=== PATIENT | female | born 1960 | race Caucasian/White ===

== ENCOUNTER → 2020-06-26 22:03 | Outpatient (CLI) | payer OTHER, SELFPAY ==
[2020-06-26 17:40] VITALS: BMI 19.3
[2020-06-29 14:28] LABS: HPV Reflexed? NOT INDICATED
== END ==
PROVIDERS: Visit Provider Nurse Practitioner
DX: Z01.419 Encounter for gynecological examination (general) (routine) without abnormal findings (principal)
CPT/HCPCS: 88175; G0145

== ENCOUNTER → 2021-02-12 15:33 | Outpatient (CLI) | payer OTHER, SELFPAY ==
[2021-01-23 13:16] VITALS: BMI 19.7
--- NOTE | 2021-02-12 15:38 | MRI_ITS ---
STUDY: MRI LUMBAR SPINE WITHOUT CONTRAST REASON FOR EXAM: Female, 60 years old. pain lumbar spine TECHNIQUE: Standardized fat and water weighted pulse sequences were obtained in the sagittal and axial planes. COMPARISON: Plain films 23 January 2021 FINDINGS: T12-L1: Degenerated endplates. Mildly decreased disc height, decreased hydration and degenerative morphology. Normal bilateral facet joints. Normal central canal and bilateral lateral recesses. Normal bilateral intervertebral neural foramina. Normal lumbar lordosis. There is mild dextro scoliosis. Normal conus medullaris that terminates at the L1. Cauda equina is normal. L1-2: Degenerated endplates. Mildly decreased disc height and hydration and degenerative morphology with irregularity and erosions. Normal bilateral facet joints. Normal central canal and bilateral lateral recesses. Normal bilateral intervertebral neural foramina. L2-3: Degenerated endplates. Decreased disc height and hydration and advanced degenerative morphology with broad disc bulge. Mildly degenerated bilateral facet joints. Mildly compressed thecal sac due to combination of spondylosis and epidural lipomatosis. Lateral recesses are patent. Left foramen is mildly/moderately stenotic and right foramen is patent. L3-4: Degenerated endplates. Decreased disc height and hydration and degenerative morphology with broad disc bulge. Degenerated bilateral facet joints. Canal is moderately stenotic with severe thecal sac compression due to superimposed lipomatosis. Moderate left foraminal stenosis with patent right foramen. Mild left lateral recess stenosis with patent right recess. L4-5: Mildly degenerated endplates. Normal disc height, degenerative hydration and morphology. Normal bilateral facet joints. Normal central canal and bilateral lateral recesses. Normal bilateral intervertebral neural foramina. L5-S1: Degenerated endplates. Decreased disc height, heterogeneous hydration and degenerative morphology with broad disc bulge. Degenerated bilateral facet joints. Canal is fully patent. Right foramen is moderately stenotic and left foramen is patent. Lateral recesses are patent. Normal visualized sacral ala. Normal visualized paraspinous soft tissue structures. MRI/Spine Lumbar (Routine) IMPRESSION: Severe thecal sac stenosis at L3-L4 due to spondylosis/epidural lipomatosis, mild at L2-L3. Scattered areas degree foraminal stenosis. Multilevel spondylosis and dextroscoliosis. Electronically Signed: Jered Paiz MD at 16:59 EDT Tel , Service support ,
== END ==
PROVIDERS: PCP Nurse Practitioner; Referring Provider Orthopaedic Surgery; Visit Provider Orthopaedic Surgery
DX: M51.36 Other intervertebral disc degeneration, lumbar region (principal); M54.5 Low back pain
CPT/HCPCS: 72148

== ENCOUNTER → 2021-09-06 | Outpatient (CLI) | payer OTHER, SELFPAY ==
[2021-09-06 21:49] LABS: Absolute Lymphocyte Count 2.53 X10^3/uL (0.83-4.51); Absolute Neutrophil Count 3.7 X10^3/uL (2.0-7.7); Basophil# 0.06 X10^3/uL; Basophil% 0.9 % (0-1); Eosinophil# 0.08 X10^3/uL; Eosinophils% 1.1 % (0-5); Hematocrit 45.1 % (37-47); Hemoglobin 14.7 g/dL (12.0-15.0); Lymphocyte # 2.53 X10^3/ul (0.83-4.51); Lymphocyte % 35.9 % (19-41); Mean Corp Hgb Conc 32.6 g/dL (32-36); Mean Corpuscular Hgb 32.6 pg (27.0-32.0); Monocyte% 9.9 % (0-10); NRBC Flagged by Analyzer 0 % (0-5); Neutrophil # 3.65 X10^3/uL (2.7-7.7); Neutrophil % 51.9 % (47-70); Platelet Count 348 K/mm3 (150-450); RBC Distribution Width CV 13.7 % (11.6-14.6); RBC Distribution Width SD 51.1 fl (35.1-43.9); Red Blood Count 4.51 M/mm3 (4.2-5.4)
[2021-09-06 22:02] LABS: ALB/GLOB Ratio 0.9 RATIO (0.9-2.4); AST(SGOT) 27 U/L (15-37); Alanine Aminotransfer ALT/SGPT 23 U/L (13-56); Albumin, Serum 3.6 g/dL (3.2-5.0); Alkaline Phosphatase 74 U/L (45-117); Anion Gap 5 (5-15); BUN 12 mg/dL (7-18); Calcium,Total 9.9 mg/dL (8.5-10.1); Chloride 108 mmol/L (98-107); Creatinine, Serum 0.75 mg/dL (0.55-1.02); EST Glomerular Filtration Rate 83 mL/min (>60); Est Glom Filt Rate - Afr Amer 101 mL/min (>60); Ferritin 111 ng/mL (8-252); Glucose 120 mg/dL (74-106); Iron 123 ug/dL (50-170); Potassium 4.1 mmol/L (3.5-5.1); Protein, Total 7.6 g/dL (6.4-8.2); Sodium Level 141 mmol/L (136-145)
== END | disposition home or self-care (01) ==
PROVIDERS: PCP Nurse Practitioner; Visit Provider Nurse Practitioner
DX: D64.9 Anemia, unspecified (principal); E28.39 Other primary ovarian failure
CPT/HCPCS: 80053; 82728; 83540; 85025

== ENCOUNTER 2022-02-17 21:31 | Outpatient (CLI) | payer OTHER, SELFPAY ==
[2022-02-17 22:29] LABS: AST(SGOT) 31 U/L (15-37); Alanine Aminotransfer ALT/SGPT 27 U/L (13-56); Albumin, Serum 3.8 g/dL (3.2-5.0); Alkaline Phosphatase 74 U/L (45-117); Anion Gap 4 (5-15); BUN 12 mg/dL (7-18); BUN/Creat Ratio 20.3 RATIO (10-20); Chloride 109 mmol/L (98-107); Creatinine, Serum 0.59 mg/dL (0.55-1.02); EST Glomerular Filtration Rate 110 mL/min (>60); Est Glom Filt Rate - Afr Amer 133 mL/min (>60); Globulin 3.7 g/dL (2.2-4.2); Glucose 95 mg/dL (74-106); Potassium 3.9 mmol/L (3.5-5.1); Protein, Total 7.5 g/dL (6.4-8.2); Sodium Level 139 mmol/L (136-145)
== END 2022-02-17 23:59 | disposition home or self-care (01) ==
PROVIDERS: PCP Nurse Practitioner; Visit Provider Nurse Practitioner
DX: M19.90 Unspecified osteoarthritis, unspecified site (principal)
CPT/HCPCS: 80053

== ENCOUNTER → 2022-08-14 | Outpatient (CLI) | payer OTHER, SELFPAY ==
[2022-08-14 21:34] LABS: AST(SGOT) 42 U/L (15-37); Alanine Aminotransfer ALT/SGPT 30 U/L (13-56); Albumin, Serum 3.7 g/dL (3.2-5.0); Alkaline Phosphatase 62 U/L (45-117); Anion Gap 6 (5-15); BUN 11 mg/dL (7-18); BUN/Creat Ratio 15.7 RATIO (10-20); Calcium,Total 10.8 mg/dL (8.5-10.1); Chloride 107 mmol/L (98-107); EST Glomerular Filtration Rate 91 mL/min (>60); Est Glom Filt Rate - Afr Amer 110 mL/min (>60); Globulin 3.7 g/dL (2.2-4.2); Glucose 100 mg/dL (74-106); Potassium 4.2 mmol/L (3.5-5.1); Protein, Total 7.4 g/dL (6.4-8.2); Sodium Level 142 mmol/L (136-145)
== END | disposition home or self-care (01) ==
PROVIDERS: PCP Nurse Practitioner; Visit Provider Nurse Practitioner
DX: M81.0 Age-related osteoporosis without current pathological fracture (principal)
CPT/HCPCS: 80053

== ENCOUNTER → 2023-03-03 | Outpatient (CLI) | payer OTHER, SELFPAY ==
[2023-03-03 22:52] LABS: ALB/GLOB Ratio 1.1 RATIO (0.9-2.4); AST(SGOT) 34 U/L (15-37); Alanine Aminotransfer ALT/SGPT 36 U/L (13-56); Albumin, Serum 3.8 g/dL (3.2-5.0); Alkaline Phosphatase 57 U/L (45-117); Anion Gap 3 (5-15); BUN 16 mg/dL (7-18); BUN/Creat Ratio 16.2 RATIO (10-20); Chloride 106 mmol/L (98-107); Creatinine, Serum 0.99 mg/dL (0.55-1.02); EST Glomerular Filtration Rate 60 mL/min (>60); Est Glom Filt Rate - Afr Amer 73 mL/min (>60); Globulin 3.4 g/dL (2.2-4.2); Glucose 115 mg/dL (74-106); Protein, Total 7.2 g/dL (6.4-8.2); Sodium Level 139 mmol/L (136-145)
== END | disposition home or self-care (01) ==
PROVIDERS: PCP Nurse Practitioner; Visit Provider Nurse Practitioner
DX: Z01.812 Encounter for preprocedural laboratory examination (principal)
CPT/HCPCS: 80053

== ENCOUNTER → 2023-09-07 | Outpatient (CLI) | payer OTHER, SELFPAY ==
[2023-09-07 22:17] LABS: ALB/GLOB Ratio 0.9 RATIO (0.9-2.4); AST(SGOT) 22 U/L (15-37); Alanine Aminotransfer ALT/SGPT 20 U/L (13-56); Albumin, Serum 3.6 g/dL (3.2-5.0); Alkaline Phosphatase 69 U/L (45-117); Anion Gap 4 (5-15); BUN 12 mg/dL (7-18); BUN/Creat Ratio 21.1 RATIO (10-20); Calcium,Total 10.2 mg/dL (8.5-10.1); Chloride 106 mmol/L (98-107); Creatinine, Serum 0.57 mg/dL (0.55-1.02); EST Glomerular Filtration Rate 114 mL/min (>60); Est Glom Filt Rate - Afr Amer 138 mL/min (>60); Globulin 4.1 g/dL (2.2-4.2); Glucose 97 mg/dL (74-106); Potassium 4.2 mmol/L (3.5-5.1); Protein, Total 7.7 g/dL (6.4-8.2); Sodium Level 136 mmol/L (136-145)
== END | disposition home or self-care (01) ==
PROVIDERS: PCP Nurse Practitioner; Visit Provider Nurse Practitioner
DX: M81.0 Age-related osteoporosis without current pathological fracture (principal)
CPT/HCPCS: 80053

== ENCOUNTER → 2024-05-10 | Outpatient (CLI) | payer OTHER, SELFPAY ==
[2024-05-10 20:47] LABS: Absolute Lymphocyte Count 1.67 X10^3/uL (0.83-4.51); Absolute Neutrophil Count 3.9 X10^3/uL (2.0-7.7); Basophil# 0.06 X10^3/uL; Basophil% 0.9 % (0-1); Eosinophil# 0.05 X10^3/uL; Eosinophils% 0.8 % (0-5); Hemoglobin 14.6 g/dL (12.0-15.0); Lymphocyte # 1.67 X10^3/ul (0.83-4.51); Lymphocyte % 25.6 % (19-41); Mean Corp Hgb Conc 33.2 g/dL (32-36); Mean Corpuscular Hgb 33.6 pg (27.0-32.0); Mean Corpuscular Volume 101.1 fL (81-99); Mean Platelet Vol. 11.8 fl (6.2-12.0); Monocyte# 0.81 X10^3/uL; Monocyte% 12.4 % (0-10); NRBC Flagged by Analyzer 0 % (0-5); Neutrophil # 3.92 X10^3/uL (2.7-7.7); Platelet Count 287 K/mm3 (150-450); RBC Distribution Width CV 13.2 % (11.6-14.6); RBC Distribution Width SD 49.8 fl (35.1-43.9); Red Blood Count 4.35 M/mm3 (4.2-5.4); White Blood Count 6.5 K/mm3 (4.4-11.0)
[2024-05-10 21:00] LABS: AST(SGOT) 46 U/L (15-37); Alanine Aminotransfer ALT/SGPT 44 U/L (13-56); Albumin, Serum 3.6 g/dL (3.2-5.0); Alkaline Phosphatase 83 U/L (45-117); Anion Gap 9 (5-15); BUN 12 mg/dL (7-18); BUN/Creat Ratio 22.6 RATIO (10-20); Calcium,Total 10.7 mg/dL (8.5-10.1); Chloride 100 mmol/L (98-107); Cholesterol 260 mg/dL (200); Creatinine, Serum 0.53 mg/dL (0.55-1.02); EST Glomerular Filtration Rate 123 mL/min (>60); Est Glom Filt Rate - Afr Amer 149 mL/min (>60); Globulin 3.7 g/dL (2.2-4.2); Glucose 106 mg/dL (74-106); High Density Lipoprotein 109 mg/dL; Protein, Total 7.3 g/dL (6.4-8.2); Sodium Level 136 mmol/L (136-145); Triglycerides 240 mg/dL; Very Low Density Lipoprotein 48 mg/dL (5-40)
[2024-05-10 21:12] LABS: Hemoglobin A1c 4.6 % (3.8-5.6)
== END | disposition home or self-care (01) ==
PROVIDERS: PCP Nurse Practitioner; Visit Provider Nurse Practitioner
DX: M81.0 Age-related osteoporosis without current pathological fracture (principal); E78.00 Pure hypercholesterolemia, unspecified; R53.83 Other fatigue
CPT/HCPCS: 80053; 80061; 83036; 85025

== ENCOUNTER → 2024-10-21 | Outpatient (CLI) | payer OTHER, SELFPAY ==
--- NOTE | 2024-10-21 08:43 | MRI_ITS ---
STUDY: MR Spine Lumbar W/O Contrast 10/23/2024 8:18 PM REASON FOR EXAM: Female, 64 years old. Back pain back pain and left leg radiculopathy TECHNIQUE: MR Spine Lumbar W/O Contrast Standardized fat and water weighted pulse sequences were obtained. COMPARISON: 02/12/2021 FINDINGS: T12-L1: Normal endplates. Normal disc height, hydration and morphology. Normal bilateral facet joints. Normal central canal and bilateral lateral recesses. Normal bilateral intervertebral neural foramina. Normal lumbar lordosis. There is a dextroscoliosis of the lumbar spine. Normal conus medullaris that terminates at the L1. L1-2: Loss of intervertebral disc height. There is endplate spondylosis of the vertebral body. Normal central canal and intervertebral neuroforamina. There is bilateral facet arthropathy. L2-3: Loss of intervertebral disc height. There is endplate spondylosis of the vertebral body. There is bilateral facet arthropathy. Left neural foraminal stenosis. Compression of exiting nerve roots. Ligamentum flavum thickening. Posterior disc bulge. Discogenic endplate changes. L3-4: Loss of intervertebral disc height. There is endplate spondylosis of the vertebral body. There is bilateral facet arthropathy. Left neural foraminal stenosis. Compression of exiting nerve roots. Ligamentum flavum thickening. Posterior disc bulge. Discogenic endplate changes. Epidural lipomatosis. L4-5: Loss of intervertebral disc height. There is endplate spondylosis of the vertebral body. There is bilateral facet arthropathy. Right neural foraminal stenosis. Compression of exiting nerve roots. Ligamentum flavum thickening. Posterior disc bulge. L5-S1: Loss of intervertebral disc height. There is endplate spondylosis of the vertebral body. There is bilateral facet arthropathy. Right neural foraminal stenosis. Compression of exiting nerve roots. Ligamentum flavum thickening. Posterior disc bulge and annular tear. Normal visualized sacral ala. Normal visualized paraspinous soft tissue structures. MRI/Spine Lumbar (Routine) IMPRESSION: Multilevel degenerative changes, as described above. Multilevel foraminal stenosis as noted above. This has progressed. Electronically Signed: Greg Alcantar MD at 20:24 EST ,
== END | disposition home or self-care (01) ==
LOC: MRI 08:42
PROVIDERS: PCP Nurse Practitioner; Referring Provider Orthopaedic Surgery Orthopaedic Surgery of the Spine; Visit Provider Orthopaedic Surgery Orthopaedic Surgery of the Spine
DX: M41.9 Scoliosis, unspecified (principal); M54.16 Radiculopathy, lumbar region
CPT/HCPCS: 72148

== ENCOUNTER → 2024-11-18 | Outpatient (CLI) | payer OTHER, SELFPAY ==
[2024-11-18 22:16] LABS: Absolute Lymphocyte Count 1.15 X10^3/uL (0.83-4.51); Basophil# 0.07 X10^3/uL; Basophil% 0.8 % (0-1); Eosinophil# 0.02 X10^3/uL; Eosinophils% 0.2 % (0-5); Hematocrit 43.1 % (37-47); Hemoglobin 14.5 g/dL (12.0-15.0); Lymphocyte # 1.15 X10^3/ul (0.83-4.51); Lymphocyte % 12.5 % (19-41); Mean Corp Hgb Conc 33.6 g/dL (32-36); Mean Corpuscular Hgb 34.4 pg (27.0-32.0); Mean Corpuscular Volume 102.4 fL (81-99); Mean Platelet Vol. 10.8 fl (6.2-12.0); Monocyte# 0.89 X10^3/uL; Monocyte% 9.7 % (0-10); NRBC Flagged by Analyzer 0 % (0-5); Neutrophil # 7.02 X10^3/uL (2.7-7.7); Neutrophil % 76.5 % (47-70); Platelet Count 294 K/mm3 (150-450); RBC Distribution Width CV 13.3 % (11.6-14.6); RBC Distribution Width SD 50.1 fl (35.1-43.9); Red Blood Count 4.21 M/mm3 (4.2-5.4); White Blood Count 9.2 K/mm3 (4.4-11.0)
[2024-11-18 22:24] LABS: ALB/GLOB Ratio 0.9 RATIO (0.9-2.4); AST(SGOT) 113 U/L (15-37); Alanine Aminotransfer ALT/SGPT 76 U/L (13-56); Albumin, Serum 3.5 g/dL (3.2-5.0); Alkaline Phosphatase 104 U/L (45-117); Anion Gap 9 (5-15); BUN 9 mg/dL (7-18); BUN/Creat Ratio 16.5 RATIO (10-20); Calcium,Total 9.8 mg/dL (8.5-10.1); Chloride 104 mmol/L (98-107); Creatinine, Serum 0.55 mg/dL (0.55-1.02); EST Glomerular Filtration Rate 119 mL/min (>60); Est Glom Filt Rate - Afr Amer 144 mL/min (>60); Globulin 3.9 g/dL (2.2-4.2); Glucose 106 mg/dL (74-106); Potassium 4.2 mmol/L (3.5-5.1); Protein, Total 7.4 g/dL (6.4-8.2); Sodium Level 138 mmol/L (136-145)
== END | disposition home or self-care (01) ==
PROVIDERS: PCP Nurse Practitioner; Referring Provider Nurse Practitioner; Visit Provider Nurse Practitioner
DX: N30.90 Cystitis, unspecified without hematuria (principal); M81.0 Age-related osteoporosis without current pathological fracture; R42 Dizziness and giddiness
CPT/HCPCS: 80053; 85025; 87077; 87086; 87088; 87186

== ENCOUNTER 2025-03-20 12:10 | Inpatient (IN) | payer OTHER, SELFPAY ==
--- NOTE | 2025-02-23 13:24 | EKG12_ITS ---
Test Reason : PRE OP Blood Pressure : */* mmHG Vent. Rate : 105 BPM Atrial Rate : 105 BPM P-R Int : 136 ms QRS Dur : 56 ms QT Int : 306 ms P-R-T Axes : 83 -40 60 degrees QTcB Int : 404 ms Sinus tachycardia Left axis deviation Cannot rule out Septal infarct , age undetermined Abnormal ECG Confirmed by Peterson Murry ([id number]), metropolitan editor SHIV ARORA ([id number]) on 02/24/2025 7:03:55 AM Referred By: BRANDON Confirmed By: Peterson Murry
[2025-02-23 14:30] LABS: Absolute Lymphocyte Count 1.21 X10^3/uL (0.83-4.51); Absolute Neutrophil Count 5.5 X10^3/uL (2.0-7.7); Basophil# 0.08 X10^3/uL; Basophil% 1.1 % (0-1); Eosinophil# 0.03 X10^3/uL; Eosinophils% 0.4 % (0-5); Hematocrit 42.3 % (37-47); Hemoglobin 14.5 g/dL (12.0-15.0); Lymphocyte # 1.21 X10^3/ul (0.83-4.51); Mean Corp Hgb Conc 34.3 g/dL (32-36); Mean Corpuscular Volume 99.3 fL (81-99); Mean Platelet Vol. 10.5 fl (6.2-12.0); Monocyte# 0.68 X10^3/uL; NRBC Flagged by Analyzer 0 % (0-5); Neutrophil # 5.53 X10^3/uL (2.7-7.7); Neutrophil % 73.2 % (47-70); Platelet Count 321 K/mm3 (150-450); RBC Distribution Width CV 13.8 % (11.6-14.6); RBC Distribution Width SD 50.4 fl (35.1-43.9); Red Blood Count 4.26 M/mm3 (4.2-5.4); White Blood Count 7.6 K/mm3 (4.4-11.0)
[2025-02-23 14:42] LABS: International Normalized Ratio 0.9; Partial Thromboplast Time 25.9 Seconds (24.1-36.2); Prothrombin Time (Protime)PT. 12.7 SECONDS (11.7-14.9)
[2025-02-23 16:03] LABS: Anion Gap 17 (5-15); BUN 8 mg/dL (4-19); BUN/Creat Ratio 15.2 RATIO (10-20); Carbon Dioxide 20.8 mmol/L (21.0-32.0); Chloride 102 mmol/L (98-108); Creatinine, Serum 0.55 mg/dL (0.70-1.20); EST Glomerular Filtration Rate 103 (>60); Glucose 90 mg/dL (70-99); HIV Nonreactive (Nonreactive); Hepatitis B Surface Antibody Nonreactive; Hepatitis C Antibody Nonreactive (Nonreactive); Potassium 4.2 mmol/L (3.3-5.1); Sodium Level 140 mmol/L (133-145)
[2025-02-23 17:46] LABS: AST(SGOT) 149 U/L (<=31); Alanine Aminotransfer ALT/SGPT 64 U/L (<=34); Albumin, Serum 3.8 g/dL (3.4-4.8); Alkaline Phosphatase 119 U/L (35-104); Globulin 3.8 g/dL (2.2-4.2); Magnesium 1.7 mg/dL (1.5-2.2); Protein, Total 7.6 g/dL (5.9-8.4); Total Bilirubin 0.84 mg/dL (0.00-1.30)
--- NOTE | 2025-02-24 09:14 | PAT.ANE_ITS ---
Pre-Assessment Diagnosis/Proposed Procedure Planned Operative Procedure(s): 360 LUMBAR FUSION L2-3 L3-4 Anesthesia History Anesthesia History - speech therapist: Anesthesia History - speech therapist Hx Hospitalization No 02/22/25 10:58 Any Problems With Anesthesia No 02/22/25 10:58 Cholinesterase deficiency No 02/22/25 10:58 You/Your Family Experience No 02/22/25 10:58 fever (hyperthermia) with Relationship Recent Exposure to Contagious Disease Does patient have nerve No 02/22/25 10:58 stimulator Patient instructed to have device shut off --Does patient have Pacemaker or ICD? When Was Last Pacemaker Check QUESTION #4 FULL TEXT: You/Your Family Experience fever (hyperthermia) with Anesthesia Last Oral Intake Last Oral intake: Last Oral Intake NPO since Meds taken in AM with sips of water? Meds patient instructed to take am of surgery PONV PONV - speech therapist: PONV - speech therapist Female Yes 02/22/25 10:58 HX of Motion Sickness No 02/22/25 10:58 HX of N/V After Surgery No 02/22/25 10:58 Non-Smoker Yes 02/22/25 10:58 Duration of Surgery greater Yes 02/22/25 10:58 than 60 minutes Number of Risk Factors 3 02/22/25 10:58 PONV Score Moderate Risk 02/22/25 10:58 Height & Weight Height & Weight: Anesthesia: Height & Weight Height 5 ft 4 in 11/18/24 17:42 Respiratory Assessment Respiratory Assessment - speech therapist: Respiratory Tract Infection Hx - speech therapist Hx Respiratory Tract Infection No 02/22/25 10:58 STOP Sleep Apnea STOP Sleep Apnea - speech therapist: STOP Sleep Apnea - speech therapist Hx Hypertension No 02/22/25 10:58 Hx Sleep Apnea No 02/22/25 10:58 CPAP BIPAP Do you snore loudly (louder No 02/22/25 10:58 than talking or can be heard Do you often feel tired/ Yes 02/22/25 10:58 fatigued/ sleepy during daytime? Has anyone observed you stop No 02/22/25 10:58 breathing during sleep? STOP Results Negative 02/22/25 10:58 QUESTION #5 FULL TEXT : Do you snore loudly (louder than talking or can be heard through closed doors)? Tobacco Use History Tobacco Use History - speech therapist: Tobacco Use History - speech therapist Tobacco Use Smoking Status Former smoker 02/22/25 10:58 Hx Tobacco Use Yes 02/22/25 10:58 Years Smoking Packs Smoked per Day Smoking Cessation Date was Yes - quit smoking within 15 02/22/25 10:58 within the last 15 years years Hx Smoking Cessation Date 11/09/24 02/22/25 10:58 Hx Smoking Cessation Counseling Hematologic Medial History Hematologic Hx - speech therapist: Hematologic Medical Hx - documentation specialist Hx of Blood Transfusion No 02/22/25 10:58 Hx of Transfusion in last 3 No 02/22/25 10:58 Months Date of Last Transfusion (if within last 3 months) Ever experience any problems No 02/22/25 10:58 with transfusion(s)? Specify any problems Hx of Preganancy in last 3 No 02/22/25 10:58 Months Nurse Filling Out Transfusion DSCHRIBER 02/22/25 10:58 & Questions: Date: 02/22/25 02/22/25 10:58 Time: 11:00 02/22/25 10:58 Patient unable to answer at this time (ie. confused, unrespo /Reproduction History /Reproductive History - speech therapist: /Reproductive Hx- speech therapist Hx Now No 02/22/25 10:58 Gestational Age (in weeks): EDC: Hx Hx Para Hx Section SAB No 02/22/25 10:58 PFSH Medical History (Updated 02/22/25 @ 11:16 by Giana Goodman) Depression Anxiety Alcohol use Easy bruising Restless leg Back pain [place] Former cigarette smoker History of pain when walking Arthritis DDD (degenerative disc disease), lumbar Home Medications ?Medication ?Instructions ?Recorded ?Last Taken ?Type multivitamin 1 tab PO DAILY SUPPLEMENT Unknown History calcium 500 mg (as 1 tab PO BID SUPPLEMENT 06/10 04/29 Unknown History carbonate)-vitamin D3 10 mcg (400 unit) tablet (Calcium 500 With D) denosumab 60 mg/mL subcutaneous 60 mg subcut [id number] SUPPLEMENT 08/18/24 Unknown History syringe (Prolia) Allergy/AdvReac Type Severity Reaction Status Date / Time No Known Allergies Allergy Verified 02/22/25 10:55 Surgical History (Updated 02/22/25 @ 11:16 by Giana Goodman) Hx of colonoscopy History of mandibular surgery History of facial surgery History of breast implant Social History Smoking Status: Former smoker Audit: Pertinent Findings Pertinent Findings EKG Perinent findings: 02/23/2025. Sinus tachycardia 105 bpm. Cannot rule out septal infarct, age undetermined. Additional pertinent findings: Labs ordered on 02/23/2025. Showed AST of 149. ALT of 64. And alkaline phosphatase of 119. This should not affect anesthesia Dr. Allen is aware and will need to decide on effects from surgical procedure. Recommendation Anesthesia Recommendation Anesthesia recommendation: OPTIMIZED for anesthesia
[2025-02-25 05:07] LABS: Hepatitis A AB, Total Negative (Negative)
[2025-03-08 09:34] VITALS: BP 127/95; PULSE 81; RESP 16; TEMP 36.6; O2SAT 100; BMI 18.8
[2025-03-08] MEDS: Magnesium 2 GM for ERAS IV (09:56)
[2025-03-08] MEDS: Acetaminophen 500 MG Tablet 1000 MG PO (09:56)
[2025-03-08] MEDS: Lactated Ringers 1,000 ML 15 ML IV (09:56)
--- NOTE | 2025-03-08 10:33 | PCM.HP.BLA ---
History and Physical Date of Admission: 03/08/25 MR#: [id number] Acct: [id number] Name: LIZETH CRAWFORD Rep #: [id number] : 1960 Provider: Dr. Moises Allen MD Age/Sex: 64/F Location: [facility] [place].[facility] Status: Signed Intake Vital Signs 11/18/2516:42 Height 5 ft 4 in Intake Visit Reasons: lumbar spine Chief Complaint: lumbar spine Allergies No Known Allergies Allergy (Verified 03/02/25 13:55) Medications ?Medication ?Instructions ?Recorded ?Confirmed ?Type multivitamin 1 tab PO DAILY SUPPLEMENT 01/23/21 03/02/25 History calcium 500 mg (as 1 tab PO BID SUPPLEMENT 07/04/21 03/02/25 History carbonate)-vitamin D3 10 mcg (400 unit) tablet (Calcium 500 With D) denosumab 60 mg/mL subcutaneous 60 mg subcut [id number] SUPPLEMENT 08/18/24 03/02/25 History syringe (Prolia) PFSH Medical History Depression Anxiety Alcohol use Easy bruising Restless leg Back pain [place] Former cigarette smoker History of pain when walking Arthritis DDD (degenerative disc disease), lumbar Surgical History Hx of colonoscopy History of mandibular surgery History of facial surgery History of breast implant Social History Smoking Status: Former smoker HPI lumbar spine Details: This documentation accurately reflects the service provided and the decisions made by me, Dr. Moises Allen MD 03/02/25 1351. Part of today?s visit was documented by Sosa SAVAGE, acting as scribe. LIZETH CRAWFORD is a 64 year old F here today for pre-op lumbar spine dos: 03/08/25. 01/05/25: LIZETH CRAWFORD is a 64 year old F here today for follow up on lumbar spine pain. She reports the pain is not getting any better. The pain is still radiating down into her left leg. She reports staying in bed a lot of the time due to the pain. She denies numbness and tingling into her legs. She has a difficult time sleeping due to the pain and has to lay on her back or her right side. She has not done PT yet, they did not get a call from [facility] to schedule that. 11/25/24: LIZETH CRAWFORD is a 64 year old F here today for MRI review of the lumbar spine. She denies any changes to her back pain but did run into a railing on Saturday 11/18 and is having some pain at her right lateral side of her ribs. She denies any PT or injections since her last visit. Denies trouble breathing, hurts to cough. Balance is still very questionable. No trouble gripping or with her hands. Non-diabetic. Does take Prolia for the bone density problems. No prior abdominal surgery. 08/19/24: LIZETH CRAWFORD is a 64 year old F here today for low back pain. She has been having pain since 2019. She denies any known injury. She states that her pain radiates down into her left leg. Denies numbness, tingling or other associated symptoms. She does have osteoporosis that she takes Prolia for and is helping with her osteoporosis. Her last bone density in December showed unchanged osteoporosis. She denies previous surgery. She last had injection at the beginning of 2020 which did insurance advisor her some relief but is unable to recall for how long. She does not wish to get any more injections. She denies physical therapy. She has been using a TENs unit at home with benefit. Does mention she has had balance issues recently. Ortho Exam General General: Yes no acute distress Neurologic: Yes alert and Yes oriented x3 Psychologic: Yes reasonable and appropriate Spine SPINE TESTING CERVICAL THORACIC LUMBAR Musculoskeletal Strength 0=absent - 5=normal Details: Neurological exam of the lower extremities shows 5x5 power. Normal sensations across all dermatomes. Brisk knee reflexes, ankle reflexes 2+. No clonus. No midline or paraspinal tenderness. Coding Level of Care Code Off vis,est,level 4 Diagnoses Spinal stenosis of lumbar region with neurogenic claudication M48.062 Lumbar radiculopathy M54.16 Other secondary scoliosis, lumbar region M41.56 Scoliosis type: other secondary scoliosis Time Spent (min) 35 Assessment and Plan Assessment and Plan (1) Spinal stenosis of lumbar region with neurogenic claudication: Status: Acute (2) Lumbar radiculopathy: Status: Acute (3) Lumbar scoliosis: Status: Acute Qualifiers: Scoliosis type: other secondary scoliosis Qualified Code(s): M41.56 - Other secondary scoliosis, lumbar region Plan Again reviewed xrays and recently done MRI and compared it to MRI from 2020. Imaging shows a worsening dextroscoliosis with apex at L2-L3 compared to imaging 3 years ago, and multilevel spondylosis. MRI shows L2-4 central and severe left foraminal stenosis. Multilevel disc degeneration noticed even at L4-5 and L5-S1. Discussed imaging findings in detail. Patient has had worsened degenerative scoliosis and has left anterior thigh symptoms correlating with left-sided radiculopathy especially L2-3 dermatomes. She has significant osteoporosis despite being on Prolia. Her osteoporosis continues to be severe in December 2023 after Prolia injections, with her lowest T-score being -4.0 in her left forearm. She began Prolia injections in 2021. She has not seen an mainframe consultant for her osteoporosis. Patient's pain continued to progressively worsen and she has noticed a worsening in her balance and walking distance along with her worsening scoliosis on xrays, a new MRI at this time is warranted. Discussed options such as physical therapy, pain management, and surgery. For her osteoporosis, recommend that we get an updated DEXA scan if surgery is to be considered. She is a smoker and smokes a half pack a day. Explained the imaging to patient. Patient would like a physical therapy referral to [facility]. If her quality of life is being affected by her pain then she should move forward with the surgical procedure. If she is fine dealing with the pain nonoperatively she could continue with physical therapy and pain management for injections. Surgical options were discussed. This would likely involve L2-4 decompression fusion and correction of the apex of the scoliosis. Increased risk related to osteoporosis was discussed. Risks of surgery include but are not limited to infection, bleeding, injury to nerves and vessels, need for further surgery, ileus, visceral injury, vascular injury, DVT, pulm embolism, pneumonia, atelectasis, cardiopulmonary event, pseudoarthrosis, hardware failure, adjacent segment degeneration, persistent pain, persistent numbness and weakness, nerve root injury. Patient understands and agrees to proceed with surgery consent was signed.
[2025-03-08 10:34] LABS: Bedside Glucose 117 mg/dL (74-106)
[2025-03-08 11:27] VITALS: BP 127/95; PULSE 81; RESP 16; TEMP 36.6; O2SAT 100
--- NOTE | 2025-03-08 11:27 | PRE.ANES_ITS ---
ASA Classification* ASA Classification ASA Classification: 3 Assessment & Plan Anesthesia* Anesthesia Assessment Anesthesia Assessment: Discussed sedation and/or anesthesia options, risks, benefits, and alternatives with patient/parents/legal guardian/POA. Questions invited. The patient/parents/legal guardian/POA seems to understand and agrees to proceed with anesthesia plan. Reviewed the physical assessment, medical history, allergy history and patient home medications list prior to surgery/procedure/anesthetic and documented any changes. Performed airway and anesthesia risk assessments. Anesthesia Type Anesthesia Type: General (hx of spina bifida) Anesthesia Focused Assessment* Temperature: 98 F Pulse Rate: 81 Blood Pressure: 127/95 Respiratory Rate: 16 Pulse Ox: 100 Airway Assessment Mouth opens: >3 cm Mallampati Score: II Focused Labs Anesthesia Preop lab: CBC WBC 7.6 K/mm3 (4.4-11.0) 02/23/25 13:35 02/23/25 RBC 4.26 M/mm3 (4.2-5.4) 02/23/25 13:35 02/23/25 Hgb 14.5 g/dL (12.0-15.0) 02/23/25 13:35 02/23/25 Hct 42.3 % (37-47) 02/23/25 13:35 02/23/25 Plt Count 321 K/mm3 (150-450) 02/23/25 13:35 02/23/25 CHEMISTRY Potassium 4.4 mmol/L (3.3-5.1) 03/02/25 21:50 03/02/25 Sodium 140 mmol/L (133-145) 03/02/25 21:50 03/02/25 Magnesium 1.7 mg/dL (1.5-2.2) 02/23/25 13:35 02/23/25 BUN 10 mg/dL (4-19) 03/02/25 21:50 03/02/25 Creatinine 0.55 mg/dL (0.70-1.20) L 03/02/25 21:50 Glucose 110 mg/dL (70-99) H 03/02/25 21:50 03/02/25 POC Glucose 117 mg/dL (74-106) H 03/08/25 09:42 03/08/25 COAG PT 12.7 SECONDS (11.7-14.9) 02/23/25 13:35 Pre-Assessment Diagnosis/Proposed Procedure Planned Operative Procedure(s): 360 LUMBAR FUSION L2-3 L3-4 Anesthesia History Anesthesia History - community relations assistant: Anesthesia History - community relations assistant Hx Hospitalization No 02/22/25 10:58 Any Problems With Anesthesia No 02/22/25 10:58 Cholinesterase deficiency No 02/22/25 10:58 You/Your Family Experience No 02/22/25 10:58 fever (hyperthermia) with Relationship Recent Exposure to Contagious No 03/08/25 09:34 Disease Does patient have nerve No 02/22/25 10:58 stimulator Patient instructed to have device shut off --Does patient have Pacemaker No 03/08/25 09:34 or ICD? When Was Last Pacemaker Check QUESTION #4 FULL TEXT: You/Your Family Experience fever (hyperthermia) with Anesthesia Last Oral Intake Last Oral intake: Last Oral Intake NPO since 07:00 03/08/25 09:34 Meds taken in AM with sips of No 03/08/25 09:34 water? Meds patient instructed to take am of surgery PONV PONV - community relations assistant: PONV - community relations assistant Female Yes 02/22/25 10:58 HX of Motion Sickness No 02/22/25 10:58 HX of N/V After Surgery No 02/22/25 10:58 Non-Smoker Yes 02/22/25 10:58 Duration of Surgery greater Yes 02/22/25 10:58 than 60 minutes Number of Risk Factors 3 02/22/25 10:58 PONV Score Moderate Risk 02/22/25 10:58 Height & Weight Height & Weight: Anesthesia: Height & Weight Height 5 ft 2 in 03/08/25 09:34 Weight: 46.7 kg 03/08/25 09:34 Body Mass Index (BMI) 18.8 03/08/25 09:34 Respiratory Assessment Respiratory Assessment - community relations assistant: Respiratory Tract Infection Hx - community relations assistant Hx Respiratory Tract Infection No 02/22/25 10:58 STOP Sleep Apnea STOP Sleep Apnea - community relations assistant: STOP Sleep Apnea - community relations assistant Hx Hypertension No 02/22/25 10:58 Hx Sleep Apnea No 02/22/25 10:58 CPAP BIPAP Do you snore loudly (louder No 02/22/25 10:58 than talking or can be heard Do you often feel tired/ Yes 02/22/25 10:58 fatigued/ sleepy during daytime? Has anyone observed you stop No 02/22/25 10:58 breathing during sleep? STOP Results Negative 02/22/25 10:58 QUESTION #5 FULL TEXT : Do you snore loudly (louder than talking or can be heard through closed doors)? Tobacco Use History Tobacco Use History - community relations assistant: Tobacco Use History - community relations assistant Tobacco Use Smoking Status Former smoker 02/22/25 10:58 Hx Tobacco Use Yes 02/22/25 10:58 Years Smoking Packs Smoked per Day Smoking Cessation Date was Yes - quit smoking within 15 02/22/25 10:58 within the last 15 years years Hx Smoking Cessation Date 11/09/24 02/22/25 10:58 Hx Smoking Cessation Counseling Hematologic Medial History Hematologic Hx - community relations assistant: Hematologic Medical Hx - water purification chemist Hx of Blood Transfusion No 02/22/25 10:58 Hx of Transfusion in last 3 No 02/22/25 10:58 Months Date of Last Transfusion (if within last 3 months) Ever experience any problems No 02/22/25 10:58 with transfusion(s)? Specify any problems Hx of Preganancy in last 3 No 02/22/25 10:58 Months Nurse Filling Out Transfusion DSCHRIBER 02/22/25 10:58 & Questions: Date: 02/22/25 02/22/25 10:58 Time: 11:00 02/22/25 10:58 Patient unable to answer at this time (ie. confused, unrespo /Reproduction History /Reproductive History - community relations assistant: /Reproductive Hx- community relations assistant Hx Now No 02/22/25 10:58 Gestational Age (in weeks): EDC: Hx Hx Para Hx Section SAB No 02/22/25 10:58 Active Medications Active Medications: Current Medications Generic Name Dose Route Start Last Admin Trade Name Freq PRN Reason Stop Dose Admin Acetaminophen 1,000 mg 03/08/25 11:30 03/08/25 09:56 Acetaminophen 500 Mg Tablet PO 03/08/25 11:31 1,000 mg X1 ONE Administration Cefazolin Sodium 2 gm/ Sodium 110 mls @ 150 mls/hr 03/08/25 11:30 Chloride IV 03/08/25 12:13 PREOP ONE Tranexamic Acid 1,000 mg/ 110 mls @ 440 mls/hr 03/08/25 11:30 Sodium Chloride IV 03/08/25 11:44 X1 ONE Tranexamic Acid 1,000 mg/ 110 mls @ 440 mls/hr 03/08/25 11:30 Sodium Chloride IV 03/08/25 11:44 X1 ONE Magnesium Sulfate 2 gm/ 104 mls @ 208 mls/hr 03/08/25 11:30 03/08/25 09:56 Dextrose IV 03/08/25 11:59 208 mls/hr X1 ONE Administration Lactated Ringer's 1,000 mls @ 15 mls/hr 03/08/25 10:00 03/08/25 09:56 IV 15 mls/hr .Q48H VALENTINE Administration Insulin Human Lispro 1 - 6 unit 03/08/25 11:30 Insulin Lispro 100 Unit/Ml Insuln.Pen SC Q4H PRN PRN BG>/= 180, SEE PROTOCOL Protocol PFSH Medical History Depression Anxiety Alcohol use Easy bruising Restless leg Back pain [place] Former cigarette smoker History of pain when walking Arthritis DDD (degenerative disc disease), lumbar Home Medications ?Medication ?Instructions ?Recorded ?Last Taken ?Type multivitamin 1 tab PO DAILY SUPPLEMENT Unknown History calcium 500 mg (as 1 tab PO BID SUPPLEMENT 06/10 04/29 Unknown History carbonate)-vitamin D3 10 mcg (400 unit) tablet (Calcium 500 With D) denosumab 60 mg/mL subcutaneous 60 mg subcut [id number] SUPPLEMENT 08/18/24 Unknown History syringe (Prolia) meclizine 12.5 mg tablet 12.5 mg PO TID PRN dizziness #30 03/03/25 Unknown Rx tabs Allergy/AdvReac Type Severity Reaction Status Date / Time No Known Allergies Allergy Verified 03/08/25 09:27 Surgical History Hx of colonoscopy History of mandibular surgery History of facial surgery History of breast implant Social History Smoking Status: Former smoker Review of Systems (Anesthesia) ROS Narrative System reviewed and no additional complaints, except as documented.
--- NOTE | 2025-03-08 12:32 | SUR.PREOP ---
surgery cancelled, IV removed and pt going home.
[2025-03-20] VITALS (16 sets, daily range): BP systolic 104–143; BP diastolic 75–95; PULSE 54–82; RESP 12–18; TEMP 35.9–37.4; O2SAT 93–100; BMI 18.8; BMI 18.9
[2025-03-20] MEDS: Lactated Ringers 1,000 ML 15 ML IV (06:30)
[2025-03-20] MEDS: Magnesium 2 GM for ERAS IV (06:35)
[2025-03-20] MEDS: Acetaminophen 500 MG Tablet 1000 MG PO ×3 (06:48→23:25)
--- NOTE | 2025-03-20 07:11 | PCM.PRE.AN2 ---
ASA Classification* ASA Classification ASA Classification: 2 Assessment & Plan Anesthesia* Anesthesia Assessment Anesthesia Assessment: Discussed sedation and/or anesthesia options, risks, benefits, and alternatives with patient/parents/legal guardian/POA. Questions invited. The patient/parents/legal guardian/POA seems to understand and agrees to proceed with anesthesia plan. Reviewed the physical assessment, medical history, allergy history and patient home medications list prior to surgery/procedure/anesthetic and documented any changes. Performed airway and anesthesia risk assessments. Anesthesia Type Anesthesia Type: General (Consider GlideScope) History Source History Obtained from:: Patient and Chart Anesthesia Focused Assessment* Temperature: 99.3 F Pulse Rate: 77 Blood Pressure: 143/92 Respiratory Rate: 16 Pulse Ox: 95 Oxygen Delivery Method: Room Air Airway Assessment Mouth opens: >3 cm Mallampati Score: IV Teeth Condition: Missing (Patient has 1 missing molar. Rest are tight.) Neck Range of motion (ROM): Full ROM Focused Labs Anesthesia Preop lab: CBC WBC 7.6 K/mm3 (4.4-11.0) 02/23/25 13:35 02/23/25 RBC 4.26 M/mm3 (4.2-5.4) 02/23/25 13:35 02/23/25 Hgb 14.5 g/dL (12.0-15.0) 02/23/25 13:35 02/23/25 Hct 42.3 % (37-47) 02/23/25 13:35 02/23/25 Plt Count 321 K/mm3 (150-450) 02/23/25 13:35 02/23/25 CHEMISTRY Potassium 4.4 mmol/L (3.3-5.1) 03/02/25 21:50 03/02/25 Sodium 140 mmol/L (133-145) 03/02/25 21:50 03/02/25 Magnesium 1.7 mg/dL (1.5-2.2) 02/23/25 13:35 02/23/25 BUN 10 mg/dL (4-19) 03/02/25 21:50 03/02/25 Creatinine 0.55 mg/dL (0.70-1.20) L 03/02/25 21:50 03/02/25 Glucose 110 mg/dL (70-99) H 03/02/25 21:50 03/02/25 POC Glucose 117 mg/dL (74-106) H 03/08/25 09:42 03/08/25 COAG PT 12.7 SECONDS (11.7-14.9) 02/23/25 13:35 02/23/25 Pre-Assessment Diagnosis/Proposed Procedure Planned Operative Procedure(s): 360 LUMBAR FUSION L2-3 L3-4 Anesthesia History 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 When Was Last Pacemaker Check QUESTION #4 FULL TEXT: You/Your Family Experience fever (hyperthermia) with Anesthesia Last Oral Intake Last Oral intake: Last Oral Intake NPO since 21:00 03/20/25 06:30 Meds taken in AM with sips of No 03/20/25 06:30 water? Meds patient instructed to take am of surgery PONV PONV - adjunct spanish instructor: PONV - adjunct spanish instructor Female Yes 02/22/25 10:58 HX of Motion Sickness No 02/22/25 10:58 HX of N/V After Surgery No 02/22/25 10:58 Non-Smoker Yes 02/22/25 10:58 Duration of Surgery greater Yes 02/22/25 10:58 than 60 minutes Number of Risk Factors 3 02/22/25 10:58 PONV Score Moderate Risk 02/22/25 10:58 Height & Weight Height & Weight: Anesthesia: Height & Weight Height 5 ft 2 in 03/20/25 06:30 Weight: 46.7 kg 03/20/25 06:30 Body Mass Index (BMI) 18.8 03/20/25 06:30 Respiratory Assessment Respiratory Assessment - adjunct spanish instructor: Respiratory Tract Infection Hx - adjunct spanish instructor Hx Respiratory Tract Infection No 02/22/25 10:58 STOP Sleep Apnea STOP Sleep Apnea - adjunct spanish instructor: STOP Sleep Apnea - adjunct spanish instructor Hx Hypertension No 02/22/25 10:58 Hx Sleep Apnea No 02/22/25 10:58 CPAP BIPAP Do you snore loudly (louder No 02/22/25 10:58 than talking or can be heard Do you often feel tired/ Yes 02/22/25 10:58 fatigued/ sleepy during daytime? Has anyone observed you stop No 02/22/25 10:58 breathing during sleep? STOP Results Negative 02/22/25 10:58 QUESTION #5 FULL TEXT : Do you snore loudly (louder than talking or can be heard through closed doors)? Tobacco Use History Tobacco Use History - adjunct spanish instructor: Tobacco Use History - adjunct spanish instructor Tobacco Use Smoking Status Former smoker 02/22/25 10:58 Hx Tobacco Use Yes 02/22/25 10:58 Years Smoking Packs Smoked per Day Smoking Cessation Date was Yes - quit smoking within 15 02/22/25 10:58 within the last 15 years years Hx Smoking Cessation Date 11/09/24 02/22/25 10:58 Hx Smoking Cessation Counseling Hematologic Medial History Hematologic Hx - adjunct spanish instructor: Hematologic Medical Hx - chair maker Hx of Blood Transfusion No 02/22/25 10:58 Hx of Transfusion in last 3 No 02/22/25 10:58 Months Date of Last Transfusion (if within last 3 months) Ever experience any problems No 02/22/25 10:58 with transfusion(s)? Specify any problems Hx of Preganancy in last 3 No 02/22/25 10:58 Months Nurse Filling Out Transfusion DSCHRIBER 02/22/25 10:58 & Questions: Date: 02/22/25 02/22/25 10:58 Time: 11:00 02/22/25 10:58 Patient unable to answer at this time (ie. confused, unrespo /Reproduction History /Reproductive History - adjunct spanish instructor: /Reproductive Hx- adjunct spanish instructor Hx Now No 02/22/25 10:58 Gestational Age (in weeks): EDC: Hx Hx Para Hx Section SAB No 02/22/25 10:58 Active Medications Active Medications: Current Medications Generic Name Dose Route Start Last Admin Trade Name Freq PRN Reason Stop Dose Admin Acetaminophen 1,000 mg 03/20/25 07:30 03/20/25 06:48 Acetaminophen 500 Mg Tablet PO 03/20/25 07:31 1,000 mg PREOP ONE Administration Cefazolin Sodium 2 gm/ Sodium 110 mls @ 150 mls/hr 03/20/25 07:30 Chloride IV 03/20/25 08:13 INTRAOP ONE Tranexamic Acid 1,000 mg/ 110 mls @ 440 mls/hr 03/20/25 07:30 Sodium Chloride IV 03/20/25 07:44 X1 ONE Tranexamic Acid 1,000 mg/ 110 mls @ 440 mls/hr 03/20/25 07:30 Sodium Chloride IV 03/20/25 07:44 X1 ONE Lactated Ringer's 1,000 mls @ 15 mls/hr 03/20/25 06:45 03/20/25 06:30 IV 15 mls/hr .Q48H VALENTINE Administration Insulin Human Lispro 1 - 6 unit 03/20/25 07:30 Insulin Lispro 100 Unit/Ml Insuln.Pen SC Q4H PRN PRN BG>/= 180, SEE PROTOCOL Protocol PFSH Medical History Depression Anxiety Alcohol use Easy bruising Restless leg Back pain [place] Former cigarette smoker History of pain when walking Arthritis DDD (degenerative disc disease), lumbar Home Medications ?Medication ?Instructions ?Recorded ?Last Taken ?Type multivitamin 1 tab PO DAILY SUPPLEMENT 01/23/21 03/15/25 History calcium 500 mg (as 1 tab PO BID SUPPLEMENT 07/04/21 03/15/25 History carbonate)-vitamin D3 10 mcg (400 unit) tablet (Calcium 500 With D) denosumab 60 mg/mL subcutaneous 60 mg subcut [id number] SUPPLEMENT 08/18/24 12/29/24 History syringe (Prolia) meclizine 12.5 mg tablet 12.5 mg PO TID PRN dizziness #30 03/03/25 Unknown Rx tabs Allergy/AdvReac Type Severity Reaction Status Date / Time No Known Allergies Allergy Verified 03/20/25 06:39 Surgical History Hx of colonoscopy History of mandibular surgery History of facial surgery History of breast implant Social History Smoking Status: Former smoker Review of Systems (Anesthesia) ROS Narrative System reviewed and no additional complaints, except as documented.
--- NOTE | 2025-03-20 07:35 | RAD_ITS ---
PROCEDURE: LUMBAR SPINE 2 OR 3 VIEWS 03/20/2025 REASON FOR EXAM: 360 LUMBAR FUSION L2-3 AND L3-4 TECHNIQUE: Fluoroscopy with 17 spot images FINDINGS: Fluoroscopy time 92.5 seconds Cumulative dose 23.56 mGy Spot images with intervertebral disc spacers L2 through L4, lateral anchor screws and bilateral posterior fusion. Please see operative report for further detail. RAD/Lumbar Spine 2 or 3 Views IMPRESSION: Fluoroscopy as above. Reading Location: [id number]
[2025-03-20] MEDS: Cefazolin 2 GM in 0.9% Normal Saline (100mL Bag) 100 ML IV ×2 (07:50→20:05)
[2025-03-20] MEDS: TRANEXAMIC ACID 1,000 MG in 0.9% Normal Saline (100mL Bag) 100 ML 440 MG IV ×2 (08:05→11:32)
[2025-03-20] MEDS: Ropivacaine 0.5% 30 ML Vial (11:53)
--- NOTE | 2025-03-20 12:10 | PCM.OPRPT ---
Procedures Musculoskeletal 20xxx-29xxx: Other Procedure See Report Operative Report (Standard) Operative Information Date of Procedure: 03/20/25 Pre-Operative Diagnosis: Lumbar scoliosis with lateral listhesis L2-4, stenosis with neurogenic claudication Post-Operative Diagnosis: Same Surgery/Procedure Performed: L2-4 oblique lumbar body fusion repairer switchgear: Yes Die Repair Machinist: Janine Scanlon Tasks completed by heel sprayer first: Closing, Removing tissue, Hemostasis: Electrocautery and Retracting Type of Anesthesia: General RN Documented Start/Stop Times: Operation Date: 03/20/25 07:30 Case Time Into Pre-Op 03/20/25 06:02 Out of Pre-Op 03/20/25 07:30 Anesthesia Start 03/20/25 07:35 Into Room 03/20/25 07:35 Procedure Start 03/20/25 08:19 Procedure End 03/20/25 12:04 Procedure Start Time: 08:19 Procedure Stop Time: 12:04 Select all DRAINS/GRAFTS/IMPLANTS that apply: Graft Graft details: Allograft cancellous bone chips, autologous bone marrow aspirate and Implanted device Implanted device details: DePuy cougar lateral lumbar interbody cage?peek Estimated Blood Loss: 50 cc Specimen collected: No Description of surgery: Preoperative diagnosis: L2-4 lateral listhesis with scoliosis, stenosis with neurogenic claudication Postoperative diagnosis: Same Name of procedures L2-4 oblique lumbar interbody fusion (OLIF), minimally invasive left sided approach, lateral decubitus: ? L2-3 anterolateral spinal fusion 87847 ? L3-4 anterolateral fusion 26489/51 ? L2-3 insertion of cage 74800 ? L3-4 insertion of cage 51318/51 ? Bone graft aspirate left iliac crest separate incision ? Allograft cancellous chips Attending Surgeon: Dr. Moises Allen Estimated blood loss: 50 mL Anesthesia: General Complications: None Indications: Patient is a 64-year-old pleasant lady who has had a long history of low back pain and bilateral lower extremity radiation, difficulty walking distances. Xrays & MRI revealed severe focal scoliosis with L3 at apex with lateral listhesis at both L2-3 and L3-4, degenerative stenosis central and foraminal. After undergoing a prolonged period of nonoperative treatment, the patient elected to undergo surgical decompression & fusion. All surgical options were discussed with the patient including anterior and posterior approaches. All risks and benefits associated with the procedure were explained to the patient. The risks include but are not limited to infection, bleeding, injury to nerves and vessels including major vessels like IVC and aorta, persistent paresthesia, persistent pain, dural tear, need for further procedures, adjacent segment degeneration, pseudoarthrosis, hardware failure, retrograde ejaculation, paralytic ileus, etc. Procedure: The patient was identified in the preoperative holding suite using Unique patient identifiers. Skin was marked, consent was reviewed, and all questions were answered. The patient was then brought back to the operative room. A surgical timeout was performed to make sure correct procedure was being done on the correct patient and all operative room staff were on the same page. General endotracheal anesthesia was then given to the patient. Russell catheter was inserted. The patient was then carefully positioned in right lateral decubitus position with the left side up on a regular OR table. Axillary roll was placed and all bony prominences were well- padded. Hip positioners were placed in the posterior buttocks and anterior sternal area. The surgical area was prepped and draped in usual fashion. Preoperative antibiotic was injected IV as preoperative antibiotic. A final timeout was then again done just before starting the procedure. A 2 inch incision oblique was taken in the left lower quadrant of the abdomen 2 fingerbreadths away from the iliac crest and the lower ribs. Sharp dissection with Bovie was carried out up to the fascia covering the external oblique. The external oblique, internal oblique and transversus abdominis muscles were split along the muscle fibers and retroperitoneal space was entered. Sponge sticks were utilized to move the bowel and peritoneum gfk-ac-soo-way and psoas muscle was exposed staying within the retroperitoneal plane. Verimedframe retractor system was positioned and the retractor blade was applied onto the psoas. The interval between psoas and midline structures was developed and appropriate retractors were placed. Once adequate interval was cleared, a disc space was identified and a marker x-ray was taken. This identified the L3-4 disc level. The prepsoas interval was then traced inferiorly. Annulotomy was done with a long handled knife. Pituitary was used to remove disc material. Curettes were used to prepare the endplates. Disc space spreaders were utilized to distract and increase the disc height. Near complete discectomy was performed. Trials of serially increasing sizes were used. A Jamshidi needle was used to aspirate bone marrow from the left anterior iliac crest through a separate incision and this aspirate was mixed with the allograft bone chips. A Depuy [place] cage of size of the 18 x 45 x 10 mm with 15 degrees lordosis was packed with corticocancellous allograft bone chips mixed with bone marrow aspirate. This was inserted into the L3-4 disc space. The retractors were then repositioned to expose the L2-3 disc and the procedure was repeated with complete discectomy and endplate preparation. Smaller disc distractors were also used to bluntly perform a contralateral annulotomy at both levels. Cage size was 18 x 45 x 10 mm at L2-3. AP and lateral C-arm pictures were taken to confirm good position of the cage. Some bone chips were also packed around the cages. Screw with washer was placed into the lower L2 and L3 body with a washer partially covering the cage at L2-3 and L3-4 respectively. Hemostasis was confirmed. The retractor blades were removed. Closure was done in layers with a continuous strand of # 1 Vicryl in all muscle layers. 2-0 Vicryl was used for subcutaneous tissue and 4-0 for Monocryl for the skin. Steri-Strips were applied and 4 x 4 gauze and Tegaderm were applied. French Cord Binder Janine Scanlon PA-C. My physician visitor use assistant was a vital part of this case. They were important in appropriate retraction during the case, and protection of soft tissues during the procedure. Their intimate knowledge of the case and my steps aided in safe and expedient completion of the procedure as well as appropriate position of the patient during the surgery. They were also vital in assisting with closure under my direct supervision. Surgical Findings: See operative note Complications Complications: No
--- NOTE | 2025-03-20 12:13 | OP.PCM_ITS ---
Procedures Musculoskeletal 20xxx-29xxx: Other Procedure See Report Operative Report (Standard) Operative Information Date of Procedure: 03/20/25 Pre-Operative Diagnosis: L2-3, L3-4 lateral listhesis with scoliosis, stenosis with neurogenic claudication Post-Operative Diagnosis: Same Surgery/Procedure Performed: L2-4 posterior spinal instrumented fusion practice coordinator: Yes Steam Box Hand: Janine Scanlon Tasks completed by graphic design assistant: Closing, Removing tissue, Implanting device and Retracting Type of Anesthesia: General RN Documented Start/Stop Times: Operation Date: 03/20/25 07:30 Case Time Into Pre-Op 03/20/25 06:02 Out of Pre-Op 03/20/25 07:30 Anesthesia Start 03/20/25 07:35 Into Room 03/20/25 07:35 Procedure Start 03/20/25 08:19 Procedure End 03/20/25 12:04 Procedure Start Time: 08:19 Procedure Stop Time: 12:04 Select all DRAINS/GRAFTS/IMPLANTS that apply: Graft Graft details: Allograft cancellous bone chips and Implanted device Implanted device details: DePHomuorker prime pedicle screw instrumentation Estimated Blood Loss: 50 cc Specimen collected: No Description of surgery: Preoperative diagnosis: L2-3, L3-4 lateral listhesis with scoliosis, stenosis with neurogenic claudication Postoperative diagnosis: Same Name of procedures: L2-4 posterior percutaneous pedicle screw instrumented fusion, prone: ? L2-3 posterior spinal fusion 59890 ? L2-4 posterior pedicle screw instrumentation 92825 ? L3-4 posterior fusion 58166/51 ? Allograft cancellous chips [id number] Attending Surgeon: Dr. Moises Allen Estimated blood loss: 50 mL (total for entire case) Anesthesia: General Complications: None Description of procedure: After the anterior procedure was complete, the patient was then turned supine. The patient was then transferred to Azael table in prone position. Back was prepped and draped in usual fashion. C-arm AP view was then taken. C-arm was positioned in a way that L2 was centralized and superior endplate of was parallel to the beam. Spinous process was centered between the pedicles. Midline was marked with skin marker and lateral borders of the pedicles were also marked. Skin marker was also utilized to traci transversely across the middle of the pedicles at L2. 2 transverse paramedian incisions of 1 inch were placed. The fascia was incised vertically. Finger dissection was utilized to palpate the transverse process and facet joint. Viper Prime screws with towers were inserted and docked onto the transverse processes. This was then slowly moved medially to reach the superior articular process of L2. This was then confirmed on C-arm and then a mallet was utilized to drive the trocar into the pedicle going up to the medial wall of the pedicle on AP view. This was performed both sides. C-arm lateral view confirmed that the tip of the trocar was in the vertebral body, and the screw was advanced into the pedicle and vertebral body. This was repeated similarly at L3 and L4 bilaterally. Screw sizes were 7 x 45 mm at L2, L3 and L4 on both sides. 80 mm precontoured titanium 5.5 mm lordotic farzana on the right and 70 mm on the left were then passed through the screw extensions and reduced down to the screws with the help of [employer] Viper instrumentation system on both sides. AP and lateral view of the C-arm showed good positioning of the screws and cages. Final tightening with the torque screwdriver was then completed. Gabriella was utilized to roughen the facet joint at L2-3 and L3-4 on the right side. Cancellous allograft bone chips mixed with bone marrow aspirate were then placed over this decorticated area. Hemostasis was achieved. Closure was done in layers with 0 Vicryls for the fascia, 2-0 Vicryls for the subcutaneous tissue, and Monocryl for the skin. Dermabond was applied. Dressings were applied covered with Tegaderm. The patient was then turned supine onto a hospital bed. The patient was extubated and taken to PACU in stable condition. The patient tolerated the procedure well and no complications occurred. Depuy [place] cage & Viper Prime minimally invasive pedicle screw instrumentation system was utilized in this case. No dural tear was identified intraoperatively. I was present for the entirety of the case and performed the surgery. Liner Man Janine Scanlon PA-C. My physician assistant department manager was a vital part of this case. They were important in appropriate retraction during the case, and protection of soft tissues during the procedure. Their intimate knowledge of the case and my steps aided in safe and expedient completion of the procedure as well as appropriate position of the patient during the surgery. They were also vital in assisting with closure under my direct supervision. Surgical Findings: See operative note Complications Complications: No
--- NOTE | 2025-03-20 12:21 | PCM.POST.ANE ---
Anesthesia: Postop Eval I Current Vital Signs Temperature: 97.4 F Pulse Rate: 62 Blood Pressure: 131/95 Respiratory Rate: 12 Pulse Ox: 99 Oxygen Delivery Method: Room Air Assessment Airway patent: Yes Spontaneous unlabored respirations: Yes Mental status: Awake nausea: No Vomiting: No Anesthesia Complication: No Fluid Hydration Crystalloid volume administer (ml): 1,500 Total IV fluid infused: 1,500 Progress Note Anesthesia document: Postop Eval 1 completed: Yes
[2025-03-20] MEDS: Ketorolac 15 MG/ML Vial IV (13:10)
--- NOTE | 2025-03-20 13:20 | PN.HOSP_ITS ---
Reason for Visit Reason for Visit: Diagnoses Encounter for other preprocedural examination (03/20/25) Subjective Subjective The patient is a 64 y/o F w/ PMHx: Anxiety and Depression, RLS, Former tobacco use, OA/DDD who presents to the [facility] on 03/20/25 with history of persistent lumbar back pain with neurogenic claudication with L2-3 and L3-L4 lateral listhesis with scoliosis as well as stenosis for planned L2-4 posterior spinal instrumented fusion per Dr. Allen given failed outpatient conservative measures and interventions. Patient seen in PACU, awakens to stimuli in discussion, notes pain in the lower back and currently rating it 9-10 out of 10 in severity however she does appear more comfortable than this. Per discussion with PACU nursing they report that she has consistently been waiting at low. Patient denies any paresthesias. Patient denies fevers, chills, nausea, emesis, abdominal pain, chest pain or dyspnea. Objective Data Objective Data Vital Signs: Vital Signs Temp Pulse Resp BP Pulse Ox O2 Del Method O2 Flow Rate 97.4 F L 58 L 12 112/81 H 100 Nasal Cannula 4 03/20/25 12:21 03/20/25 13:00 03/20/25 13:00 03/20/25 13:00 03/20/25 13:00 03/20/25 13:00 03/20/25 13:00 Oxygen Flow Rate (L/min) 4 Oxygen Delivery Method Nasal Cannula Weight: 102 lb 15.294 oz Body Mass Index (BMI) 18.8 Intake & Output: Intake and Output for Last 24 Hours 03/18/25 03/19/25 03/20/25 23:59 23:59 23:59 Intake Total 4220 / 4220 Output Total 400 / 400 Balance 3820 / 3820 Lab / Micro Data 02/23/25 13:35 02/23/25 13:35 Labs: Laboratory Results - last 24 hr 03/20/25 06:30: Blood Type A POSITIVE, Antibody Screen NEGATIVE Micro: Microbiology 02/25/25 10:53 Swab (Method) Nasal Screen MRSA/MSSA - Final Physical Exam Narrative Physical Examination: General: Awake, alert, oriented x 3 and cooperative, laying in the PACU bed, does not appear any distress but noting her lumbar back pain 10 out of 10, dull aching. Skin: Normal color, normal turgor, no icterus, no cyanosis except for recent OR with dressings in place with no drainage. HEENT: AT/NC, EOMI, PERRLA, mildly dry MM, no carotid bruits or JVD noted. Lungs: Mildly diminished, greater bases, appropriate effort, no rales, ronchi or wheezing. Heart: Regular rate and rhythm; no gallop, rub audible. Abdomen: Soft, NTTP, ND, mildly hyperactive BS, no HSM. Extremities: No cyanosis, clubbing, or edema. Neurological: Patient awake, alert, oriented as noted, cognitive function improving, currently suspect near baseline intact; pupils equally reactive to light and accommodation, cranial nerves grossly normal, moving all 4 extremities, no focal deficits, strength moderately to severely globally decreased given recent LR, improving as anesthetics also wear off. Psychiatric: Affect appears fatigued otherwise normal, no acute evidence of depressive or anxiety feelings but does have underlying history. Assessment & Plan Assessment/Plan (1) Spinal stenosis of lumbar region with neurogenic claudication: PLAN: Plan The patient is a 64 y/o F w/ PMHx: Anxiety and Depression, RLS, Former tobacco use, OA/DDD who presents to the [facility] on 03/20/25 with history of persistent lumbar back pain with neurogenic claudication with L2-3 and L3-L4 lateral listhesis with scoliosis as well as stenosis for planned L2-4 posterior spinal instrumented fusion per Dr. Allen given failed outpatient conservative measures and interventions. #1. Persistent lumbar back pain with neurogenic claudication: Failed conservative therapies and treatments, admitted per Dr. Allen, s/p L2-4 posterior spinal instrumented fusion, post-operative pain management, bowel regimen, DVT Prophylaxis, PT/OT/CM per Orthopedic surgery discretion. #2. Pain anxiety and Depression: Per current list not on regimen, encourage continued outpatient follow-up and evaluation. #3. Former tobacco use: Encourage continued tobacco use. #4. RLS: Not on regimen per current list, if needed may add requip. #5. DVT prophylaxis: SCDs, chemoprophylaxis per discretion of Orthopedic surgery given recent OR. Charges/Coding Visit Charges Inpatient E&M: 69774 Subs Hosp L3
[2025-03-20] MEDS: Methocarbamol 500 MG Tablet 1000 MG PO ×3 (15:23→23:26)
--- NOTE | 2025-03-20 18:16 | POSTOPAN2_ITS ---
Anesthesia Postop Eval I Sum Postop Eval Completion status Anesthesia document: Postop Eval 1 completed: Yes Anesthesia Postop Eval I Summary Anesthesia Postop Eval I Summary: Anesthesia Postop Eval I: Assessment Summary Airway patent Yes 03/20/25 12:21 [email or web address] Spontaneous unlabored Yes 03/20/25 12:21 [email or web address] respirations Mental status Awake 03/20/25 12:21 [email or web address] nausea No 03/20/25 12:21 [email or web address] [email or web address] Vomiting No 03/20/25 12:21 [email or web address] Anesthesia Postop Eval I: Fluid Summary Crystalloid volume administer 1,500 03/20/25 12:21 [email or web address] (ml) Colloids volume administered ( ml) Blood Product volume administered (ml) Total IV fluid infused 1,500 03/20/25 12:21 [email or web address] Anesthesia Postop Eval I: Summary Notes Anesthesia Complication No 03/20/25 12:21 [email or web address] Anesthesia Complication Comment: Post-operative progress note Anesthesia: Postop Eval II Evaluation Mental status: Awake and Calm Pain Level: 2 nausea: No Vomiting: No Complications Anesthesia Complication: No
--- NOTE | 2025-03-20 18:16 | PCM.POSTANE2 ---
Anesthesia Postop Eval I Sum Postop Eval Completion status Anesthesia document: Postop Eval 1 completed: Yes Anesthesia Postop Eval I Summary Anesthesia Postop Eval I Summary: Anesthesia Postop Eval I: Assessment Summary Airway patent Yes 03/20/25 12:21 GEOSCIENCES ASSOCIATE [email or web address] Spontaneous unlabored Yes 03/20/25 12:21 GEOSCIENCES ASSOCIATE [email or web address] respirations Mental status Awake 03/20/25 12:21 GEOSCIENCES ASSOCIATE [email or web address] nausea No 03/20/25 12:21 GEOSCIENCES ASSOCIATE [email or web address] Vomiting No 03/20/25 12:21 GEOSCIENCES ASSOCIATE [email or web address].[email or web address] Anesthesia Postop Eval I: Fluid Summary Crystalloid volume administer 1,500 03/20/25 12:21 GEOSCIENCES ASSOCIATE [email or web address] (ml) Colloids volume administered ( ml) Blood Product volume administered (ml) Total IV fluid infused 1,500 03/20/25 12:21 GEOSCIENCES ASSOCIATE [email or web address] Anesthesia Postop Eval I: Summary Notes Anesthesia Complication No 03/20/25 12:21 GEOSCIENCES ASSOCIATE [email or web address].[email or web address] Anesthesia Complication Comment: Post-operative progress note Anesthesia: Postop Eval II Evaluation Mental status: Awake and Calm Pain Level: 2 nausea: No Vomiting: No Complications Anesthesia Complication: No
[2025-03-20] MEDS: Senna/Docusate Sodium 1 Tablet 2 TABLET PO (21:11)
[2025-03-21 02:29] VITALS: BMI 18.9
[2025-03-21 02:32] VITALS: BP 127/82; PULSE 80; RESP 16; TEMP 36.6; O2SAT 96
[2025-03-21] MEDS: Cefazolin 2 GM in 0.9% Normal Saline (100mL Bag) 100 ML IV (02:43)
[2025-03-21] MEDS: 0.9% Saline Lock 10 ML Syringe IV (02:43)
[2025-03-21] MEDS: Ketorolac 15 MG/ML Vial IV (02:43)
--- NOTE | 2025-03-21 04:45 | RAD_ITS ---
PROCEDURE: LUMBAR SPINE 2 OR 3 VIEWS 03/21/2025 REASON FOR EXAM: S/P LUMBAR FUSION TECHNIQUE: 2 view(s) of the lumbar spine COMPARISON: 08/18/2024 FINDINGS: Status post L2-3 and L3-4 intervertebral disc spacers with left lateral anchor screws and bilateral posterior fusion appears intact and anatomic. Significantly improved appearing lumbar spine alignment with mild residual rightward curvature. L4-5 spondylosis/discogenic change again noted. Old posterior lower right rib fractures. RAD/Lumbar Spine 2 or 3 Views IMPRESSION: Status post L2-3 and L3-4 intervertebral disc spacers with left lateral anchor screws and bilateral posterior fusion appears intact and anatomic. Significantly improved appearing lumbar spine alignment w ith mild residual rightward curvature. Reading Location: [id number]
[2025-03-21] MEDS: Acetaminophen 500 MG Tablet 1000 MG PO (06:01)
[2025-03-21] MEDS: Methocarbamol 500 MG Tablet 1000 MG PO ×2 (06:01→12:50)
[2025-03-21 06:05] VITALS: BMI 18.9
[2025-03-21 06:50] VITALS: O2SAT 98
[2025-03-21 07:04] LABS: Hematocrit 32.4 % (37-47); Mean Corpuscular Volume 103.2 fL (81-99); Mean Platelet Vol. 10.7 fl (6.2-12.0); Platelet Count 263 K/mm3 (150-450); RBC Distribution Width CV 13.2 % (11.6-14.6); RBC Distribution Width SD 49.6 fl (35.1-43.9); Red Blood Count 3.14 M/mm3 (4.2-5.4)
[2025-03-21 07:16] VITALS: BP 106/85; PULSE 88; RESP 16; TEMP 36.6; O2SAT 100
[2025-03-21 07:33] LABS: Anion Gap 11 (5-15); BUN 5 mg/dL (4-19); BUN/Creat Ratio 10.5 RATIO (10-20); Calcium,Total 8.6 mg/dL (7.6-11.0); Carbon Dioxide 23.2 mmol/L (21.0-32.0); Chloride 104 mmol/L (98-108); Creatinine, Serum 0.51 mg/dL (0.70-1.20); EST Glomerular Filtration Rate 105 (>60); Estimated Creatinine Clearance 83.24 ml/min (50-250); Glucose 103 mg/dL (70-99); Potassium 3.7 mmol/L (3.3-5.1); Sodium Level 138 mmol/L (133-145)
[2025-03-21] MEDS: Ensure Surgery 237 ML LIQUID PO ×2 (07:36→12:50)
--- NOTE | 2025-03-21 10:02 | CASEMGMT ---
CONCETTA PONCE Assessment: Face to Face with pt for initial transition planning/care coordination assessment. CONCETTA PONCE introduced self and role at [facility], pt voices understanding and consents to assessment. Pt is A&O x4 and answers all questions appropriately at this time. Pt sitting up in chair in no distress. Care providers, pharmacy, and demographics verified/updated. Admitting Dx: 360 lumbar fusion Strata Score: 1 PCP:DANA Giraldo Specialists:ericka Allen Pharmacy: [facility] Retail Insurance: [facility] Prescription Benefit: yes LNOK: Jordy Daley, Living Arrangements: Pt lives with and adult son in a two story home with 2 steps to enter. Pt reports she was I in ADL and was able to do her own meals and laundry. Pt does the grocery shopping. Pt denies concerns at home. She states her and son are able to assist her post op. Transportation: Pt does not drive. transports pt. DME:walk in shower with grab bars, w/c. Pt is just returning from [employer] from purchasing a FWW. HHC/SNF: Denies hx of Pt states no concerns with going home at time of dc. Pt states no further concerns/needs. CM to follow. Advised pt to ask CM if any further questions/concerns/needs arise, voices understanding. Pt Goal: Home Plan: Home Mely [place] CM
[2025-03-21] MEDS: Meloxicam 15 MG Tablet PO (10:23)
[2025-03-21] MEDS: Senna/Docusate Sodium 1 Tablet 2 TABLET PO (10:23)
--- NOTE | 2025-03-21 12:28 | PCM.PN.ORT ---
Subjective Subjective POD 1 L2-4 fusion. Patient is doing well postoperatively with her pain well-managed. Patient has been up and has walked with therapy who recommends additional therapy however patient will be going home with assistance. Patient has passed gas and has tolerated a solid meal. Seen with Dr. Allen. Objective Data Objective Data Vital Signs: Vital Signs Temp Pulse Resp BP Pulse Ox O2 Del Method O2 Flow Rate 97.8 F 88 16 106/85 H 100 Room Air 4 03/21/25 07:16 03/21/25 07:16 03/21/25 07:16 03/21/25 07:16 03/21/25 07:16 03/21/25 07:16 03/20/25 14:56 Oxygen Flow Rate (L/min) 4 Oxygen Delivery Method Room Air Weight: 102 lb 15.294 oz Body Mass Index (BMI) 18.9 Intake & Output: Intake and Output for Last 24 Hours 03/19/25 03/20/25 03/21/25 23:59 23:59 23:59 Intake Total 5630.5 / 5630.5 110 / 110 Output Total 400 / 400 Balance 5230.5 / 5230.5 110 / 110 Lab / Micro Data 03/21/25 06:11 03/21/25 06:11 Labs: Laboratory Results - last 24 hr 03/21/25 06:11: WBC 8.0, RBC 3.14 L, Hgb 11.0 L, Hct 32.4 L, MCV 103.2 H, MCH 35.0 H, MCHC 34.0, RDW Std Deviation 49.6 H, RDW Coeff of Taylor 13.2, Plt Count 263, MPV 10.7, Sodium 138, Potassium 3.7, Chloride 104, Carbon Dioxide 23.2, Anion Gap 11, BUN 5, Creatinine 0.51 L, Estim Creat Clear Calc 83.24, Est GFR (MDRD) Non-Af 105, BUN/Creatinine Ratio 10.5, Glucose 103 H, Calcium 8.6 Micro: Microbiology 02/25/25 10:53 Swab (Method) Nasal Screen MRSA/MSSA - Final Radiography Diagnostic Testing: Radiology Impression Lumbar Spine X-Ray 03/20/25 07:35 IMPRESSION: Fluoroscopy as above. Reading Location: [id number] Lumbar Spine X-Ray 03/21/25 04:45 IMPRESSION: Status post L2-3 and L3-4 intervertebral disc spacers with left lateral anchor screws and bilateral posterior fusion appears intact and anatomic. Significantly improved appearing lumbar spine alignment with mild residual rightward curvature. Reading Location: [facility] Physical Exam Narrative Neurological examination of the lower extremity shows 5X5 power. Normal sensation across all dermatomes. Abdomen is soft, nontender, nondistended. Physical examination of the back belly shows Tegaderm and gauze CDI. Const alert, oriented x3 and no apparent distress Assessment & Plan Assessment/Plan (1) Status post lumbar spinal fusion: PLAN: Plan Postop day 1 L2-4 fusion. Patient has passed gas and has tolerated a solid meal. Obtained and reviewed x-rays today which show hardware and bone graft in good position. Educated and reviewed on the use of the incentive spirometer. PT/OT cleared for home discharge. Reviewed restrictions of no bending, lifting, twisting. Home-going meds include oxycodone, acetaminophen, meloxicam, methocarbamol, senna. OARRS reviewed. She will follow-up in the clinic in 2 weeks. Patient is in agreement.
--- NOTE | 2025-03-21 15:43 | PHA.DC_ITS ---
Pharmacy [place] Med Reconciliation Pharmacy Service has performed discharge medication reconciliation for this patient. Medication education papers prepared, patient discharged before I was able to rehabilitation services counselor. Medications reviewed. The patient's discharge medication list was reviewed for discrepancies and discrepancies were resolved. Medications at Discharge Home Medications multivitamin 1 tab PO DAILY SUPPLEMENT 01/23/21 calcium 500 mg (as carbonate)-vitamin D3 10 mcg (400 unit) tablet (Calcium 500 With D) 1 tab PO BID SUPPLEMENT 07/04/21 denosumab 60 mg/mL subcutaneous syringe (Prolia) 60 mg subcut [id number] SUPPLEMENT 08/18/24 meclizine 12.5 mg tablet 12.5 mg PO TID PRN dizziness #30 tabs 03/03/25 acetaminophen 500 mg tablet 500 mg PO Q6H #30 tabs 03/21/25 meloxicam 15 mg tablet 15 mg PO DAILY #30 tabs 03/21/25 methocarbamol 500 mg tablet 750 mg (1.5 x 500 mg) PO TID PRN pain/spasms #60 tabs 03/21/25 oxycodone 5 mg tablet 2.5 - 5 mg (0.5 - 1 x 5 mg) PO Q6H PRN pain 7 days #28 tabs 03/21/25 sennosides 8.6 mg-docusate sodium 50 mg tablet (Stimulant Laxative Plus) 2 tab PO BID PRN constipation #30 tabs 03/21/25
--- NOTE | 2025-03-22 09:14 | CASEMGMT ---
Made aware by charge nurse that pt family called in lastnight and pt did not have a walker. TC to pt, spoke with her and she states she is borrowing her sister's walker. Offered to send a rx and a FWW could be delivered to her home, pt declined. She denies any further needs.
== END 2025-03-21 14:21 | disposition home or self-care (01) | DRG 428 ==
LOC: MS3 03-21 07:08
PROVIDERS: Anesthesiology; Student in an Organized Health Care Education/Training Program; Admitting Provider Orthopaedic Surgery Orthopaedic Surgery of the Spine; PCP Nurse Practitioner; Referring Provider Orthopaedic Surgery Orthopaedic Surgery of the Spine; Visit Provider Orthopaedic Surgery Orthopaedic Surgery of the Spine
PROC: 0SG13AJ Fusion of 2 or more Lumbar Vertebral Joints with Interbody Fusion Device, Posterior Approach, Anterior Column, Percutaneous Approach (ICD-10-PCS; principal; 2025-03-20 07:00)
DX: M48.062 Spinal stenosis, lumbar region with neurogenic claudication (principal); M41.56 Other secondary scoliosis, lumbar region; M19.90 Unspecified osteoarthritis, unspecified site; M51.16 Intervertebral disc disorders with radiculopathy, lumbar region; M81.0 Age-related osteoporosis without current pathological fracture; Z87.891 Personal history of nicotine dependence; Z79.899 Other long term (current) drug therapy
CPT/HCPCS: 36415; 72100; 76000; 80048; 80076; 82962; 83735; 85025; 85027; 85610; 85730; 86703; 86706; 86708; 86803; 86850; 86900; 86901; 87081; 93005; 94668; 97162; 97166; 97530; A4648; C1713; A4216; J2405